=== PATIENT | male | born 1945 | race Caucasian/White ===

== ENCOUNTER 2018-08-12 11:26 | Inpatient (IN) ==
[2018-08-12] MEDS ORDERED: MethylPREDNISolone Sod Succinate Inj 125 MG/2 ML Vial IV.PUSH ONE (12:10)
[2018-08-12 12:37] LABS: Baso # (Auto) 0.1 th/mm3 (0.0-0.2); Baso % (Auto) 0.6 % (0.0-2.0); Eos # (Auto) 0.3 th/mm3 (0.0-0.4); Eos % (Auto) 2.6 % (0.0-4.0); Hematocrit 34.2 % (39.0-51.0); Hemoglobin 11.7 gm/dL (13.0-17.0); Lymph # (Auto) 0.7 th/mm3 (1.0-4.8); Lymph % (Auto) 6.8 % (9.0-44.0); Mean Corpuscular HGB Conc 34.3 % (32.0-36.0); Mean Corpuscular Hemoglobin 31.7 pg (27.0-34.0); Mean Corpuscular Volume 92.7 fL (80.0-100.0); Mean Platelet Volume 8.9 fL (7.0-11.0); Mono # (Auto) 1.5 th/mm3 (0.0-0.9); Mono % (Auto) 14.1 % (0.0-8.0); Neut # (Auto) 7.8 th/mm3 (1.8-7.7); Neut % (Auto) 75.9 % (16.0-70.0); Platelet Count 377 th/mm3 (150-450); Red Blood Count 3.69 mil/mm3 (4.50-5.90); Red Cell Distribution Width 14.4 % (11.6-17.2); White Blood Count 10.3 th/mm3 (4.0-11.0)
--- NOTE | 2018-08-12 12:38 | ED ---
HPI General Chief Complaint: Respiratory Symptoms Stated Complaint: Cold Symptoms Time Seen by Provider: 08/12/18 11:38 History of Present Illness This is a 72-year-old male with history of COPD, hypertension, who presents today with 2-3-week history of dyspnea. Patient states that he is from [place]. He states that before leaving from [place], he had upper respiratory symptoms with cough, low-grade fever and dyspnea. He states he was seen at an urgent care and they started him on doxycycline and 20 mg daily prednisone. He states he had to stop the doxycycline because it made him nauseous. He states he took the prednisone however is still feeling short of breath. He denies any chest pain, chest pressure. He denies any shortness of breath at rest. He reports that [place] the [place], he can only walk a few yards before he becomes winded. There are no other complaints at the time of my examination. Related Data Home Medications Medication Instructions Recorded Confirmed albuterol sulfate [ProAir HFA] 1 puff INHALATION Q4-6H PRN 08/12/18 08/12/18 amlodipine 10 mg PO DAILY 08/12/18 08/12/18 aspirin 81 mg PO DAILY 08/12/18 08/12/18 fexofenadine [Angella Allergy] 180 mg PO DAILY 08/12/18 08/12/18 fluticasone-salmeterol [Advair 1 inh INHALATION Q12H 08/12/18 08/12/18 Diskus] lisinopril 20 mg PO DAILY 08/12/18 08/12/18 metoprolol tartrate 50 mg PO DAILY 08/12/18 08/12/18 prednisone 20 mg PO DAILY 08/12/18 08/12/18 rabeprazole [Aciphex] 20 mg PO DAILY 08/12/18 08/12/18 tiotropium bromide [Spiriva 2 puff INHALATION DAILY 08/12/18 08/12/18 Respimat] Allergies Allergy/AdvReac Type Severity Reaction Status Date / Time No Known Allergies Allergy Verified 08/12/18 11:36 Review of Systems ROS: all other systems reviewed are negative Constitutional Denies chills and Denies fever(s) Eyes Reports system reviewed and no additional complaints, except as docu ENT Reports system reviewed and no additional complaints, except as docu Cardiovascular Denies chest pain, Denies diaphoresis and Reports dyspnea Respiratory Denies chest congestion, Denies cough and Reports dyspnea Gastrointestinal Denies abdominal pain, Denies nausea and Denies vomiting Genitourinary Reports system reviewed and no additional complaints, except as [facility] Musculoskeletal Reports system reviewed and no additional complaints, except as [facility] Integumentary/Breasts Reports system reviewed and no additional complaints, except as [facility] Neurologic Reports system reviewed and no additional complaints, except as [facility] Medical History Medical History COPD (chronic obstructive pulmonary disease) (Acute) Hypertension (Acute) Surgical History Surgical History H/O heart artery stent (Acute) History of tonsillectomy (Acute) Social History Social History Substance History: No History of Abuse Second Hand Smoke Exposure: No Smoking Status: Former smoker Tobacco Type: Cigarettes How Often Do You Have a Drink Containing Alcohol: 2 to 3 times a week Recent Travel in [facility] within the Last 8 Weeks: No Recent Out of Country Travel within the Last 8 Weeks: No Immunization History Tetanus Immunization: <5 Years Exam Narrative Exam Narrative: GENERAL: Well-developed well-nourished male in no acute respiratory distress. SKIN: Focused skin assessment warm/dry. HEAD: Atraumatic. Normocephalic. EYES: No scleral icterus. No injection or drainage. ENT: No nasal bleeding or discharge. Mucous membranes pink and moist. NECK: Trachea midline. Supple. CARDIOVASCULAR: Regular rate and rhythm. No murmur appreciated. RESPIRATORY: No rales. Decreased breath sounds at the bilateral bases. Coarse upper airway sounds bilaterally. GASTROINTESTINAL: Abdomen soft, non-tender, nondistended. Hepatic and splenic margins not palpable. MUSCULOSKELETAL: No obvious deformities. No clubbing. No cyanosis. No edema. NEUROLOGICAL: Awake and alert. No obvious cranial nerve deficits. Motor grossly within normal limits. Normal speech. Course Initial Documented Vital Signs Temperature 98.8 F 08/12/18 11:34 Pulse Rate 85 08/12/18 11:34 Respiratory Rate 22 08/12/18 11:34 Blood Pressure 159/88 H 08/12/18 11:34 Pulse Oximetry 96 08/12/18 11:34 Last Documented Vital Signs Temperature 97.9 F 08/12/18 17:51 Pulse Rate 79 08/12/18 17:51 Respiratory Rate 20 08/12/18 17:51 Blood Pressure 124/78 08/12/18 17:51 Pulse Oximetry 96 08/12/18 17:51 Medical Decision Making MDM Narrative Medical decision making narrative: 72-year-old male with history of COPD, presents today with complaints of shortness of breath with exertion. Patient's been treated previous to coming down here by his urgent care doctor for bronchitis. He was started on doxycycline which he was not able to finish. He was also started on prednisone 20 mg daily. He is been given 125 mg of Solu- Medrol. He is been given 3 nebulizer treatments. He was ambulated throughout the department and had desaturations into the high 80s. The patient stated he still felt short of breath. He will be admitted under observation for COPD exacerbation. Case was discussed with the admitting resident team and they are agreeable for the admission. Medical Screen Exam Complete: Yes Emergency Medical Condition: Yes Differential Diagnosis Differential Diagnosis: COPD versus bronchitis versus pneumonia Lab Data Result diagrams: 08/12/18 12:15 08/12/18 12:15 Lab Results 08/12/18 08/12/18 08/12/18 Range/Units 12:15 12:15 12:15 WBC 10.3 (4.0-11.0) th/mm3 RBC 3.69 L (4.50-5.90) mil/mm3 Hgb 11.7 L (13.0-17.0) gm/dL Hct 34.2 L (39.0-51.0) % MCV 92.7 (80.0-100.0) fL MCH 31.7 (27.0-34.0) pg MCHC 34.3 (32.0-36.0) % RDW 14.4 (11.6-17.2) % Plt Count 377 (150-450) th/mm3 MPV 8.9 (7.0-11.0) fL Neut % (Auto) 75.9 H (16.0-70.0) % Lymph % (Auto) 6.8 L (9.0-44.0) % [place] % (Auto) 14.1 H (0.0-8.0) % Eos % (Auto) 2.6 (0.0-4.0) % Baso % (Auto) 0.6 (0.0-2.0) % Neut # (Auto) 7.8 H (1.8-7.7) th/mm3 Lymph # (Auto) 0.7 L (1.0-4.8) th/mm3 [place] # (Auto) 1.5 H (0.0-0.9) th/mm3 Eos # (Auto) 0.3 (0.0-0.4) th/mm3 Baso # (Auto) 0.1 (0.0-0.2) th/mm3 WBC Differential . Differential Comment Auto diff final Sodium 134 L (136-145) meq/L Potassium 4.3 (3.5-5.1) meq/L Chloride 100 (98-107) meq/L Carbon Dioxide 24.8 (21.0-32.0) meq/L Anion Gap 9 (5-15) meq/L BUN 27 H (7-18) mg/dL Creatinine 1.92 H (0.60-1.30) mg/dL Estimated GFR 35 L (>89) mL/min Random Glucose 103 (74-106) mg/dL Calcium 9.2 (8.5-10.1) mg/dL Total Bilirubin 0.5 (0.2-1.0) mg/dL AST 27 (15-37) U/L ALT 19 (12-78) U/L Alkaline Phosphatase 42 L (45-117) U/L Total Creatine Kinase 106 (39-308) U/L CK-MB (CK-2) 2.1 (0.5-3.6) ng/mL Troponin I Less than 0.02 L (0.02-0.05) ng/mL B-Natriuretic Peptide 81 (0-100) pg/mL Total Protein 7.1 (6.4-8.2) g/dL Albumin 3.1 L (3.4-5.0) g/dL Imaging Data Radiologist's impression: Chest X-Ray 08/12/18 12:10 CONCLUSION: No acute cardiopulmonary disease. Extensive COPD and probable scar right apex of the lung extending to right upper lobe laterally and somewhat pleural-based . Discharge Plan Discharge Disposition Patient Disposition: ED Admit(ED Internal Use Only) Discharge Order Discharge Orders: ED Use Only Admit Order (Routine); Ordered 08/12/18 Ordered By: Ehsan Pierce Discharge Details Diagnosis: Acute exacerbation of chronic obstructive pulmonary disease (COPD) Physicians Team ED Provider: Ehsan Pierce Primary Care Provider: Primary Care Jasmin Kam Attending Provider: Raj Erickson Status ED Status: Admitted Observation Patient
[2018-08-12 12:55] LABS: Alanine Aminotransferase 19 U/L (12-78)
[2018-08-12 13:01] LABS: Albumin 3.1 g/dL (3.4-5.0); Alkaline Phosphatase 42 U/L (45-117); Anion Gap 9 meq/L (5-15); Aspartate Aminotransferase 27 U/L (15-37); Blood Urea Nitrogen 27 mg/dL (7-18); Calcium 9.2 mg/dL (8.5-10.1); Carbon Dioxide 24.8 meq/L (21.0-32.0); Chloride 100 meq/L (98-107); Creatine Kinase 106 U/L (39-308); Glomerular Filtration Rate 35 mL/min (>89); Glucose,Random 103 mg/dL (74-106); Sodium 134 meq/L (136-145); Total Protein 7.1 g/dL (6.4-8.2)
[2018-08-12 13:04] LABS: Potassium 4.3 meq/L (3.5-5.1)
--- NOTE | 2018-08-12 13:08 | XR ---
EXAM DATE: 08/12/2018 1:03 PM EST AGE/SEX: 72 years / Male INDICATIONS: Shortness of breath and chest tightness. CLINICAL DATA: This is the patient's initial encounter. Patient reports that signs and symptoms have been present for 1 day and indicates a pain score of 2/10. MEDICAL/SURGICAL HISTORY: Hypertension. . Cardiac stent. COMPARISON: No prior exams available for comparison. FINDINGS: There is no appreciable pleural effusion for technique. Heart and mediastinum are unremarkable. C OPD changes are seen. Parenchymal changes are present in right apex of the lung irregular in appearan ce probably areas of scar. Focal consolidation is not seen. CONCLUSION: No acute cardiopulmonary disease. Extensive COPD and probable scar right apex of the mariaa g extending to right upper lobe laterally and somewhat pleural-based . Electronically signed by: Zak Lin MD Board Certified Radiologist 08/12/2018 1:07 PM EST
[2018-08-12 13:16] LABS: Creatine Kinase MB 2.1 ng/mL (0.5-3.6)
--- NOTE | 2018-08-12 15:37 | P.HPFP ---
History of Present Illness Primary Care Physician: No Primary Care Physician History of Present Illness: This patient is a 72 yo M with a history of COPD and MA who presents to the ED with a 3 week history of progressive shortness of breath. Patient reports that approximately 3 weeks ago patient began to have shortness of breath that became progressively worse. He reports that over the 3 weeks he noticed that it took him shorter shorter distances before he was short of breath. At the beginning of the 3 weeks patient also experienced a flulike illness for which he took doxycycline as well as a steroid by his PCP. He reports taking 4 days with antibiotics and 4 days worth of the steroids. He finishes steroids on August 09. He reports shortness of breath is associated with activity and is not associated to position or food intake. He describes his chest is feeling tight and reports that using his inhalers helped significantly. He says that when he goes to bed and lies down his shortness of breath does not worsen and he does not notice it while he sleeping. He denies any chest pain. He denies any nausea, vomiting, fevers, chills, or any urinary symptoms. He denies any recent coughing or production of sputum. His does report that last night he felt a little warm and took Tylenol. His only other associated symptoms are some swelling in his feet a couple of days ago after consuming alcohol. He denies that he has never been hospitalized or intubated for his COPD and he is not on home oxygen. PMHx: COPD, HTN, Hydronephrosis as a child. Meds: Lisinopril 10, pro-air, amlodipine, aspirin, Angella, Advair, metoprolol, prednisone, AcipHex, Spiriva Surgical Hx: Stent placed in 2002 in [facility], tonsillectomy at 11 years old, vasectomy 15 years ago FMHX: None. Father of cerebral hemorrhage at 56, Mother passed at 85 with COPD and heart problems. Allergies: none Social: with 2 healthy children. 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 Smoked 1.5 packs a day for 35 year and quit 21 years ago. 3-4 beers a day for the last 11 years. No drugs. Code: Full Pulm: Dr. Geovany Case in [place], [place] PCP: No local PCP, Cuauhtemoc Kraft MD in [facility] Statistics Teacher: Dr. Morton - Diagnosis (1) COPD (chronic obstructive pulmonary disease) (2) HTN (hypertension) (3) ADALI (acute kidney injury) (4) Normocytic anemia (5) Alcohol use Review of Systems Constitutional: Denies chills, Denies fever(s), Denies headache(s), Denies dizziness, Eyes: Denies change in vision, Denies double vision, Denies blurry vision Cardiovascular: Denies chest pain, Denies fast heart rate, Denies rapid, pounding, or irregular heartbeat Respiratory: Endorses shortness of breath without wheezing, denies any coughing or sputum production Gastrointestinal: Denies abdominal pain, Denies constipation, Denies loose stools, Denies nausea, Denies vomiting Genitourinary: Denies difficulty urinating, Denies painful urination, Denies urinary frequency, Denies blood in urine PMFSH - History History Provided By: Patient - Medical History Medical History: Medical History (Last Updated 08/12/18 @ 11:49 by Uzma Bolanos RN) COPD (chronic obstructive pulmonary disease) Hypertension - Surgical History Surgical History: Surgical History (Last Updated 08/12/18 @ 11:49 by Uzma Bolanos RN) H/O heart artery stent History of tonsillectomy - Tobacco History Smoking Status: Former smoker - Alcohol History How Often Do You Have a Drink Containing Alcohol: 4 or more times a week - Substance Use History Substance History: No History of Abuse - Travel History Recent Travel in the [place] Within the Last 8 Weeks: No Recent Travel Out of the Country Within the Last 8 Weeks: No - Immunization History Tetanus Immunization: <5 Years Medications and Allergies Active Medications: Active Medications Albuterol (Albuterol Neb (Prn)) 2.5 mg NEB Q15M PRN PRN Reason: DYSPNEA Allergies Allergy/AdvReac Type Severity Reaction Status Date / Time No Known Allergies Allergy Verified 08/12/18 11:36 Home Medications Medication Instructions Recorded Confirmed Type albuterol sulfate [ProAir HFA] 1 puff INHALATION Q4-6H PRN 08/12/18 08/12/18 History amlodipine 10 mg PO DAILY 08/12/18 08/12/18 History aspirin 81 mg PO DAILY 08/12/18 08/12/18 History fexofenadine [Angella Allergy] 180 mg PO DAILY 08/12/18 08/12/18 History fluticasone-salmeterol [Advair 1 inh INHALATION Q12H 08/12/18 08/12/18 History Diskus] lisinopril 20 mg PO DAILY 08/12/18 08/12/18 History metoprolol tartrate 50 mg PO DAILY 08/12/18 08/12/18 History prednisone 20 mg PO DAILY 08/12/18 08/12/18 History rabeprazole [Aciphex] 20 mg PO DAILY 08/12/18 08/12/18 History tiotropium bromide [Spiriva 2 puff INHALATION DAILY 08/12/18 08/12/18 History Respimat] Exam Vital signs: Vital Signs 08/12/18 11:34 08/12/18 11:56 08/12/18 12:46 Temperature 98.8 F 98.7 F Pulse Rate 85 72 80 Respiratory Rate 22 18 20 Blood Pressure 159/88 H 138/84 Pulse Oximetry 96 97 08/12/18 14:05 08/12/18 14:36 08/12/18 14:42 Temperature Pulse Rate 78 78 Respiratory Rate 18 Blood Pressure 166/78 H Pulse Oximetry 89 L 96 96 Intake & Output 08/11/18 08/12/18 08/12/18 18:59 06:59 18:59 Weight 68.039 kg Narrative: GENERAL: Well-nourished, well-developed patient. No acute distress. SKIN: Warm and dry. No rash. EYES: No scleral icterus. No injection or drainage. PERRLA. EOMI. HENT: Normocephalic. Atraumatic. MMM. OP Benign. NECK: Supple, trachea midline. No JVD or lymphadenopathy. CARDIOVASCULAR: S1-S2 difficult to distinguish, regular rate and rhythm pulse, no murmurs rubs or gallops appreciated RESPIRATORY: Breath sounds diminished in all lung caban, no notable wheezing, crackles, rubs, or rales GASTROINTESTINAL: Abdomen soft, non-tender, nondistended. BS WNL. MUSCULOSKELETAL: No cyanosis or edema. Strength grossly WNL. BACK: Nontender without obvious deformity. No CVA tenderness. NEURO/PSYCH: Afocal. Awake, alert, and oriented x3. Results - Labs Result diagrams: 08/12/18 12:15 08/12/18 12:15 Abnormal lab results 08/12/18 08/12/18 Range/Units 12:15 12:15 RBC 3.69 L (4.50-5.90) mil/mm3 Hgb 11.7 L (13.0-17.0) gm/dL Hct 34.2 L (39.0-51.0) % Neut % (Auto) 75.9 H (16.0-70.0) % Lymph % (Auto) 6.8 L (9.0-44.0) % [place] % (Auto) 14.1 H (0.0-8.0) % Neut # (Auto) 7.8 H (1.8-7.7) th/mm3 Lymph # (Auto) 0.7 L (1.0-4.8) th/mm3 [place] # (Auto) 1.5 H (0.0-0.9) th/mm3 Sodium 134 L (136-145) meq/L BUN 27 H (7-18) mg/dL Creatinine 1.92 H (0.60-1.30) mg/dL Estimated GFR 35 L (>89) mL/min Alkaline Phosphatase 42 L (45-117) U/L Troponin I Less than 0.02 L (0.02-0.05) ng/mL Albumin 3.1 L (3.4-5.0) g/dL Short CBC 08/12/18 Range/Units 12:15 WBC 10.3 (4.0-11.0) th/mm3 Hgb 11.7 L (13.0-17.0) gm/dL Hct 34.2 L (39.0-51.0) % Plt Count 377 (150-450) th/mm3 BMP 08/12/18 12:15 Sodium 134 L Potassium 4.3 Chloride 100 Carbon Dioxide 24.8 BUN 27 H Creatinine 1.92 H Calcium 9.2 Cardiac Enzymes 08/12/18 Range/Units 12:15 Total Creatine Kinase 106 (39-308) U/L CK-MB (CK-2) 2.1 (0.5-3.6) ng/mL Troponin I Less than 0.02 L (0.02-0.05) ng/mL Liver Function 08/12/18 Range/Units 12:15 Total Bilirubin 0.5 (0.2-1.0) mg/dL AST 27 (15-37) U/L ALT 19 (12-78) U/L Alkaline Phosphatase 42 L (45-117) U/L Albumin 3.1 L (3.4-5.0) g/dL - Imaging Impressions Chest X-Ray 08/12/18 12:10 CONCLUSION: No acute cardiopulmonary disease. Extensive COPD and probable scar right apex of the lung extending to right upper lobe laterally and somewhat pleural-based . Caprini VTE Risk Assessment Caprini VTE Risk Assessment: Moderate/High Risk (score >= 2) Caprini Risk Assessment Model: Point Value = 1 Point Value = 2 Point Value = 3 Point Value = 5 Age 41-60 Minor surgery BMI > 25 kg/m2 Swollen legs Varicose veins or History of unexplained or recurrent spontaneous Oral contraceptives or hormone replacement Sepsis (< 1 month) Serious lung disease, including pneumonia (< 1 month) Abnormal pulmonary function Acute myocardial infarction Congestive heart failure (< 1 month) History of inflammatory bowel disease Medical patient at bed rest Age 61-74 Arthroscopic surgery Major open surgery (> 45 min) Laparoscopic surgery (> 45 min) Malignancy Confined to bed (> 72 hours) Immobilizing plaster cast Central venous access Age >= 75 History of VTE Family history of VTE Factor V Leiden Prothrombin [id number] Lupus anticoagulant Anticardiolipin antibodies Elevated serum homocysteine Heparin-induced thrombocytopenia Other congenital or acquired thrombophilia Stroke (< 1 month) Elective arthroplasty Hip, pelvis, or leg fracture Acute spinal cord injury (< 1 month) Prophylaxis Regimen: Total Risk Factor Score Risk Level Prophylaxis Regimen 0-1 Low Early ambulation 2 Moderate Order ONE of the following: *Sequential Compression Device (SCD) *Heparin 5000 units SQ BID 3-4 Higher Order ONE of the following medications: *Heparin 5000 units SQ TID *Enoxaparin/Lovenox 40 mg SQ daily (WT < 150 kg, CrCl > 30 mL/min) *Enoxaparin/Lovenox 30 mg SQ daily (WT < 150 kg, CrCl > 10-29 mL/min) *Enoxaparin/Lovenox 30 mg SQ BID (WT < 150 kg, CrCl > 30 mL/min) AND/OR *Sequential Compression Device (SCD) 5 or more Highest Order ONE of the following medications: *Heparin 5000 units SQ TID (Preferred with Epidurals) *Enoxaparin/Lovenox 40 mg SQ daily (WT < 150 kg, CrCl > 30 mL/min) *Enoxaparin/Lovenox 30 mg SQ daily (WT < 150 kg, CrCl > 10-29 mL/min) *Enoxaparin/Lovenox 30 mg SQ BID (WT < 150 kg, CrCl > 30 mL/min) AND *Sequential Compression Device (SCD) Assessment and Plan - Assessment (1) COPD (chronic obstructive pulmonary disease) Code(s): J44.9 - Chronic obstructive pulmonary disease, unspecified Status: Acute Plan: This patient is a 72 yo M with a history of COPD and MA who presents to the ED with a 3 week history of progressive shortness of breath. Different diagnosis of shortness of breath includes new onset CHF, MA, COPD exacerbation, anemia, and PE. Patient not experiencing any chest pain at this time. -Duo nebs scheduled every 6 hours -Albuterol 2.5 mg nebulized every 15 minutes as needed for dyspnea -Levaquin 750 mg daily -Prednisone 40 mg daily -Supplemental oxygen as needed to maintain saturations between 88 and 92% -Incentive spirometry (2) HTN (hypertension) Code(s): I10 - Essential (primary) hypertension Status: Acute Plan: Patient hypertensive on admission. Has history of possible MA. -Continue home aspirin 81 mg -Continue home amlodipine 10 mg -Continue home lisinopril 10 mg -Continue home metoprolol 50 mg (3) ADALI (acute kidney injury) Code(s): N17.9 - Acute kidney failure, unspecified Status: Acute Plan: Creatinine 1.92 and admission. Patient has a history of hydronephrosis as a child with decreased kidney function. Baseline creatinine unknown. We will try to get records from PCP. -Trend creatinine -Continue to hydrate orally (4) Normocytic anemia Code(s): D64.9 - Anemia, unspecified Status: Acute Plan: Patient has a hemoglobin 11.7 with a 4.2 on admission. Normocytic likely due to anemia of chronic disease. 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 -CIWA protocol in place Fluids: Not indicated at this time Electrolytes: Replete as needed Nutrition: Cardiac diet DVT prophylaxis: Heparin subcu
[2018-08-12] MEDS ORDERED: Acetaminophen 325 MG Tablet PO PRN (16:12)
[2018-08-12] MEDS ORDERED: Bisacodyl 10 MG Supp RECTAL PRN (16:12)
[2018-08-12] MEDS ORDERED: Haloperidol Inj 5 MG/ML Ampul IV.PUSH PRN (16:18)
[2018-08-12] MEDS ORDERED: LORazepam 1 MG Tablet PO PRN (16:18)
[2018-08-12] MEDS: Heparin - SQ 10,000 UNITS/ML Vial SQ SCH (17:46)
[2018-08-12 19:59] LABS: Creatine Kinase 68 U/L (39-308)
[2018-08-12] MEDS: Senna/Docusate Sodium 8.6/50 MG Tablet PO SCH (20:31)
[2018-08-13 01:05] LABS: Creatine Kinase 103 U/L (39-308)
[2018-08-13] MEDS: Heparin - SQ 10,000 UNITS/ML Vial SQ SCH (05:00)
[2018-08-13 08:34] LABS: Albumin 2.6 g/dL (3.4-5.0); Anion Gap 8 meq/L (5-15); Aspartate Aminotransferase 17 U/L (15-37); Blood Urea Nitrogen 28 mg/dL (7-18); Calcium 8.6 mg/dL (8.5-10.1); Carbon Dioxide 23.6 meq/L (21.0-32.0); Chloride 101 meq/L (98-107); Glomerular Filtration Rate 37 mL/min (>89); Glucose,Random 112 mg/dL (74-106); Sodium 133 meq/L (136-145)
[2018-08-13 08:35] LABS: Baso % (Auto) 0.2 % (0.0-2.0); Hematocrit 28.7 % (39.0-51.0); Hemoglobin 9.7 gm/dL (13.0-17.0); Lymph # (Auto) 0.5 th/mm3 (1.0-4.8); Lymph % (Auto) 7.1 % (9.0-44.0); Mean Corpuscular Hemoglobin 31.1 pg (27.0-34.0); Mean Corpuscular Volume 91.4 fL (80.0-100.0); Mean Platelet Volume 7.6 fL (7.0-11.0); Mono # (Auto) 0.4 th/mm3 (0.0-0.9); Mono % (Auto) 5.1 % (0.0-8.0); Neut # (Auto) 6.3 th/mm3 (1.8-7.7); Neut % (Auto) 87.6 % (16.0-70.0); Platelet Count 286 th/mm3 (150-450); Red Blood Count 3.14 mil/mm3 (4.50-5.90); Red Cell Distribution Width 14.3 % (11.6-17.2); White Blood Count 7.2 th/mm3 (4.0-11.0)
[2018-08-13 08:36] LABS: Alanine Aminotransferase 17 U/L (12-78)
[2018-08-13 08:39] LABS: Alkaline Phosphatase 36 U/L (45-117); Ferritin 74 ng/mL (26-388); Total Protein 6.1 g/dL (6.4-8.2)
[2018-08-13] MEDS ORDERED: levoFLOXacin 750 MG Tablet PO SCH (09:00)
[2018-08-13] MEDS ORDERED: Metoprolol Tartrate 50 MG Tablet PO SCH (09:00)
[2018-08-13] MEDS ORDERED: predniSONE 20 MG Tablet PO SCH (09:00)
[2018-08-13] MEDS ORDERED: amLODIPine 10 MG Tablet PO SCH (09:00)
[2018-08-13] MEDS ORDERED: Lisinopril 10 MG Tablet PO SCH (09:00)
[2018-08-13] MEDS ORDERED: Loratadine 10 MG Tablet PO SCH (09:00)
[2018-08-13] MEDS: Senna/Docusate Sodium 8.6/50 MG Tablet PO SCH (09:17)
--- NOTE | 2018-08-13 12:20 | P.PNFP ---
Subjective Interval history: Patient reports feeling better, feeling okay, feeling ready to go. Patient reports dyspnea on exertion after walking about 30 feet. However, performed a brief 1-2 minute home oxygen walk test without any oxygen desaturations below 95 %. He denies any fever, chills. He reports that he is eating and drinking going the bathroom well. <Raj Corona - 08/13/18 12:20> Results - Labs Result diagrams: 08/13/18 06:15 08/13/18 06:15 <Raj Erickson - 08/13/18 14:12> Abnormal lab results 08/12/18 08/13/18 08/13/18 Range/Units 19:11 00:29 06:15 RBC 3.14 L (4.50-5.90) mil/mm3 Hgb 9.7 L D (13.0-17.0) gm/dL Hct 28.7 L (39.0-51.0) % Neut % (Auto) 87.6 H (16.0-70.0) % Lymph % (Auto) 7.1 L (9.0-44.0) % Lymph # (Auto) 0.5 L (1.0-4.8) th/mm3 Sodium (136-145) meq/L BUN (7-18) mg/dL Creatinine (0.60-1.30) mg/dL Estimated GFR (>89) mL/min Random Glucose (74-106) mg/dL Alkaline Phosphatase (45-117) U/L Troponin I Less than 0.02 L Less than 0.02 L (0.02-0.05) ng/mL Total Protein (6.4-8.2) g/dL Albumin (3.4-5.0) g/dL 08/13/18 Range/Units 06:15 RBC (4.50-5.90) mil/mm3 Hgb (13.0-17.0) gm/dL Hct (39.0-51.0) % Neut % (Auto) (16.0-70.0) % Lymph % (Auto) (9.0-44.0) % Lymph # (Auto) (1.0-4.8) th/mm3 Sodium 133 L (136-145) meq/L BUN 28 H (7-18) mg/dL Creatinine 1.80 H (0.60-1.30) mg/dL Estimated GFR 37 L (>89) mL/min Random Glucose 112 H (74-106) mg/dL Alkaline Phosphatase 36 L (45-117) U/L Troponin I (0.02-0.05) ng/mL Total Protein 6.1 L D (6.4-8.2) g/dL Albumin 2.6 L (3.4-5.0) g/dL Short CBC 08/13/18 Range/Units 06:15 WBC 7.2 (4.0-11.0) th/mm3 Hgb 9.7 L D (13.0-17.0) gm/dL Hct 28.7 L (39.0-51.0) % Plt Count 286 (150-450) th/mm3 BMP 08/13/18 06:15 Sodium 133 L Potassium 4.0 Chloride 101 Carbon Dioxide 23.6 BUN 28 H Creatinine 1.80 H Calcium 8.6 Cardiac Enzymes 08/12/18 08/13/18 Range/Units 19:11 00:29 Total Creatine Kinase 68 103 (39-308) U/L Troponin I Less than 0.02 L Less than 0.02 L (0.02-0.05) ng/mL Liver Function 08/13/18 Range/Units 06:15 Total Bilirubin 0.2 (0.2-1.0) mg/dL AST 17 (15-37) U/L ALT 17 (12-78) U/L Alkaline Phosphatase 36 L (45-117) U/L Albumin 2.6 L (3.4-5.0) g/dL <Raj Erickson L - 08/13/18 14:12> Abnormal lab results 08/12/18 08/12/18 08/12/18 Range/Units 12:15 12:15 19:11 RBC 3.69 L (4.50-5.90) mil/mm3 Hgb 11.7 L (13.0-17.0) gm/dL Hct 34.2 L (39.0-51.0) % Neut % (Auto) 75.9 H (16.0-70.0) % Lymph % (Auto) 6.8 L (9.0-44.0) % [place] % (Auto) 14.1 H (0.0-8.0) % Neut # (Auto) 7.8 H (1.8-7.7) th/mm3 Lymph # (Auto) 0.7 L (1.0-4.8) th/mm3 [place] # (Auto) 1.5 H (0.0-0.9) th/mm3 Sodium 134 L (136-145) meq/L BUN 27 H (7-18) mg/dL Creatinine 1.92 H (0.60-1.30) mg/dL Estimated GFR 35 L (>89) mL/min Random Glucose (74-106) mg/dL Alkaline Phosphatase 42 L (45-117) U/L Troponin I Less than 0.02 L Less than 0.02 L (0.02-0.05) ng/mL Total Protein (6.4-8.2) g/dL Albumin 3.1 L (3.4-5.0) g/dL 08/13/18 08/13/18 08/13/18 Range/Units 00:29 06:15 06:15 RBC 3.14 L (4.50-5.90) mil/mm3 Hgb 9.7 L D (13.0-17.0) gm/dL Hct 28.7 L (39.0-51.0) % Neut % (Auto) 87.6 H (16.0-70.0) % Lymph % (Auto) 7.1 L (9.0-44.0) % [place] % (Auto) (0.0-8.0) % Neut # (Auto) (1.8-7.7) th/mm3 Lymph # (Auto) 0.5 L (1.0-4.8) th/mm3 [place] # (Auto) (0.0-0.9) th/mm3 Sodium 133 L (136-145) meq/L BUN 28 H (7-18) mg/dL Creatinine 1.80 H (0.60-1.30) mg/dL Estimated GFR 37 L (>89) mL/min Random Glucose 112 H (74-106) mg/dL Alkaline Phosphatase 36 L (45-117) U/L Troponin I Less than 0.02 L (0.02-0.05) ng/mL Total Protein 6.1 L D (6.4-8.2) g/dL Albumin 2.6 L (3.4-5.0) g/dL Short CBC 08/12/18 08/13/18 Range/Units 12:15 06:15 WBC 10.3 7.2 (4.0-11.0) th/mm3 Hgb 11.7 L 9.7 L D (13.0-17.0) gm/dL Hct 34.2 L 28.7 L (39.0-51.0) % Plt Count 377 286 (150-450) th/mm3 BMP 08/12/18 08/13/18 12:15 06:15 Sodium 134 L 133 L Potassium 4.3 4.0 Chloride 100 101 Carbon Dioxide 24.8 23.6 BUN 27 H 28 H Creatinine 1.92 H 1.80 H Calcium 9.2 8.6 Cardiac Enzymes 08/12/18 08/12/18 08/13/18 Range/Units 12:15 19:11 00:29 Total Creatine Kinase 106 68 103 (39-308) U/L CK-MB (CK-2) 2.1 (0.5-3.6) ng/mL Troponin I Less than 0.02 L Less than 0.02 L Less than 0.02 L (0.02-0.05) ng/mL Liver Function 08/12/18 08/13/18 Range/Units 12:15 06:15 Total Bilirubin 0.5 0.2 (0.2-1.0) mg/dL AST 27 17 (15-37) U/L ALT 19 17 (12-78) U/L Alkaline Phosphatase 42 L 36 L (45-117) U/L Albumin 3.1 L 2.6 L (3.4-5.0) g/dL <Raj Corona 08/13/18 12:20> - Imaging Impressions Chest X-Ray 08/12/18 12:10 CONCLUSION: No acute cardiopulmonary disease. Extensive COPD and probable scar right apex of the lung extending to right upper lobe laterally and somewhat pleural-based . <Raj Corona 08/13/18 12:20> Physical Exam Vital signs: Vital Signs 08/12/18 14:36 08/12/18 14:42 08/12/18 17:51 Temperature 97.9 F Pulse Rate 78 78 79 Respiratory Rate 18 20 Blood Pressure 166/78 H 124/78 Pulse Oximetry 96 96 96 08/12/18 20:00 08/13/18 00:00 08/13/18 03:24 Temperature 98.5 F 98.2 F Pulse Rate 85 74 80 Respiratory Rate 16 16 18 Blood Pressure 143/72 H 144/70 H Pulse Oximetry 95 95 97 08/13/18 04:00 08/13/18 07:53 08/13/18 08:57 Temperature 98.6 F 97.5 F L Pulse Rate 78 69 82 Respiratory Rate 16 18 18 Blood Pressure 131/70 134/87 Pulse Oximetry 96 96 98 08/13/18 12:00 Temperature 98.1 F Pulse Rate 68 Respiratory Rate 16 Blood Pressure 119/80 Pulse Oximetry 97 Intake & Output 08/12/18 08/13/18 08/13/18 18:59 06:59 18:59 Weight 72.8 kg 72.7 kg Other: Date of Last Bowel Movement 08/11/18 08/11/18 08/11/18 Weight On Admission 72.8 kg <Raj Erickson - 08/13/18 14:12> Vital Signs 08/12/18 12:46 08/12/18 14:05 08/12/18 14:36 Temperature Pulse Rate 80 78 Respiratory Rate 20 18 Blood Pressure 166/78 H Pulse Oximetry 89 L 96 08/12/18 14:42 08/12/18 17:51 08/12/18 20:00 Temperature 97.9 F 98.5 F Pulse Rate 78 79 85 Respiratory Rate 20 16 Blood Pressure 124/78 143/72 H Pulse Oximetry 96 96 95 08/13/18 00:00 08/13/18 03:24 08/13/18 04:00 Temperature 98.2 F 98.6 F Pulse Rate 74 80 78 Respiratory Rate 16 18 16 Blood Pressure 144/70 H 131/70 Pulse Oximetry 95 97 96 08/13/18 07:53 08/13/18 08:57 Temperature 97.5 F L Pulse Rate 69 82 Respiratory Rate 18 18 Blood Pressure 134/87 Pulse Oximetry 96 98 Intake & Output 08/12/18 08/13/18 08/13/18 18:59 06:59 18:59 Weight 72.8 kg 72.7 kg Other: Date of Last Bowel Movement 08/11/18 08/11/18 08/11/18 Weight On Admission 72.8 kg <Raj Corona - 08/13/18 12:20> Narrative: GENERAL: Well-nourished, well-developed patient. No acute distress. SKIN: Warm and dry. No rash. EYES: No scleral icterus. No injection or drainage. PERRLA. EOMI. HENT: Normocephalic. Atraumatic. MMM. OP Benign. NECK: Supple, trachea midline. No JVD or lymphadenopathy. CARDIOVASCULAR: Regular rate and rhythm pulse, no murmurs rubs or gallops appreciated RESPIRATORY: Breath sounds diminished in all lung caban, no notable wheezing, crackles, rubs, or rales GASTROINTESTINAL: Abdomen soft, non-tender, nondistended. BS WNL. MUSCULOSKELETAL: No cyanosis or edema. Strength grossly WNL. BACK: Nontender without obvious deformity. No CVA tenderness. NEURO/PSYCH: Afocal. Awake, alert, and oriented x3. <DanieleRaj Tuttle - 08/13/18 12:20> Assessment and Plan - Assessment (1) COPD (chronic obstructive pulmonary disease) Code(s): J44.9 - Chronic obstructive pulmonary disease, unspecified Status: Acute (2) HTN (hypertension) Code(s): I10 - Essential (primary) hypertension Status: Acute (3) ADALI (acute kidney injury) Code(s): N17.9 - Acute kidney failure, unspecified Status: Acute (4) Normocytic anemia Code(s): D64.9 - Anemia, unspecified Status: Acute (5) Alcohol use Code(s): Z78.9 - Other specified health status Status: Acute <Raj Erickson - 08/13/18 14:12> (1) COPD (chronic obstructive pulmonary disease) Code(s): J44.9 - Chronic obstructive pulmonary disease, unspecified Status: Acute Plan: This patient is a 72 yo M with a history of COPD and RI who presents to the ED with a 3 week history of progressive shortness of breath. Different diagnosis of shortness of breath includes new onset CHF, RI, COPD exacerbation, anemia, and PE. Patient not experiencing any chest pain at this time. -Duo nebs scheduled every 6 hours -Albuterol 2.5 mg nebulized every 15 minutes as needed for dyspnea -Patient has nebulizer medication at home -Stop Levaquin 750 mg daily -Prednisone 40 mg daily; discharge with a 5-day total course of steroids; patient was already on 5 days of prednisone; no need to taper -Supplemental oxygen not needed to maintain saturations between 88 and 92% -Incentive spirometry -1-2 minute home oxygen walk test normal without significant desat (2) HTN (hypertension) Code(s): I10 - Essential (primary) hypertension Status: Acute Plan: Patient hypertensive on admission. Has history of possible RI. -Continue home aspirin 81 mg -Continue home amlodipine 10 mg -Continue home lisinopril 10 mg -Continue home metoprolol 50 mg (3) ADALI (acute kidney injury) Code(s): N17.9 - Acute kidney failure, unspecified Status: Acute Plan: Creatinine trend: 1.92, 1.8. Patient has a history of hydronephrosis as a child with decreased kidney function. Baseline creatinine unknown. -Pt will f/u with PCP. -Trend creatinine as outpatient -Continue to hydrate orally (4) Normocytic anemia Code(s): D64.9 - Anemia, unspecified Status: Acute Plan: Patient has a hemoglobin 11.7 with a 4.2 on admission. 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 -CIWA protocol in place Fluids: Not indicated at this time Electrolytes: Replete as needed Nutrition: Cardiac diet DVT prophylaxis: Heparin subcu <Raj Corona - 08/13/18 13:37> - Assessment and Plan This patient is a 72 yo M with a history of COPD and RI who presents to the ED with a 3 week history of progressive shortness of breath, who was admitted and treated for COPD exacerbation, which improved his symptoms. Patient will be discharged on 5 days of oral steroids and instructed to follow-up with his PCP. <Raj Corona - 08/13/18 12:20> Discussed Condition With: Dr. Erickson, Dr. Santso <Raj Corona 08/13/18 12:20> - Attending Attestation The exam, history, and the medical decision-making described in the above note were completed with the assistance of the resident physician. I reviewed and agree with the findings presented. I attest that I had a [id number] encounter with the patient on the same day, and personally performed and documented my assessment and findings in the medical record. Patient seen with Dr. Santos and Dr. Sanabria this morning. I was present for the entire history and physical exam. <Raj Erickson - 08/13/18 14:12>
[2018-08-13 12:52] VITALS: BP 119/80; PULSE 68; RESP 16; TEMP 98.1; O2SAT 97
--- NOTE | 2018-08-13 15:14 | ECG ---
Date Performed: 08/12/2018 Time Performed: 22:20:36 PTAGE: 72 years EKG: Sinus rhythm NORMAL ECG NO PREVIOUS TRACING DOCTOR: Jose Miguel Jeter Interpretating Date/Time 08/13/2018 15:12:19
== END 2018-08-13 13:53 | disposition home or self-care (01) | DRG 191 ==
LOC: NEDA 11:26 → NEPC 11:26 → OBSVTOIN 14:52 → N04 17:56
PROVIDERS: ADMIT Family Medicine; ATTEND Family Medicine
CPT/HCPCS: 71010; 71045; 80053; 82550; 82552; 82728; 83520; 83880; 84484; 85025; 90774; 90784; 93005; 94150; 94640; 94665; 96374; 99285; C8952; J1644; J2930; J7506; J7512